=== PATIENT | male | born 1975 | race African-American/Black ===

== ENCOUNTER 2022-10-19 11:07 | Emergency (ER) | payer SELFPAY ==
[~2022-10-19] VITALS: Ht 170.2 cm; Wt 94.1 kg
[2022-10-19 11:08] VITALS: TEMP 98
[2022-10-19] MEDS ORDERED: NORV5TAB PO ×2 (11:18→14:24)
[2022-10-19] MEDS ORDERED: HYDR12.55 PO ×2 (11:18→14:24)
[2022-10-19 12:09] LABS: BASO # 0.1 10^3/uL (0.0-0.2); BASO % 1.2 % (0.0-1.0); EOS # 0.3 10^3/uL (0.0-0.5); EOS % 3.3 % (0.0-3.0); HEMATOCRIT 43.8 % (42.0-52.0); HEMOGLOBIN 15.3 g/dl (13.5-17.5); LYMPH # 1.4 10^3/uL (1.5-5.0); LYMPH % 18.3 % (24.0-44.0); MEAN CORPUSCULAR HEMOGLOBIN 31.4 pg (27.0-33.0); MEAN CORPUSCULAR HGB CONC 34.9 g/dl (32.0-36.5); MEAN CORPUSCULAR VOLUME 89.8 fl (80.0-96.0); MONO # 0.6 10^3/uL (0.0-0.8); MONO % 8.1 % (2.0-8.0); NEUTROPHILS # 5.1 10^3/uL (1.5-8.5); NEUTROPHILS % 66.9 % (36.0-66.0); PLATELET COUNT, AUTOMATED 270 10^3/uL (150-450); RED BLOOD COUNT 4.88 10^6/uL (4.30-6.10); WHITE BLOOD COUNT 7.6 10^3/uL (4.0-10.0)
[2022-10-19 12:13] LABS: ERYTHROCYTE SEDIMENTATION RATE 5 mm/hr (0-15)
[2022-10-19 12:34] LABS: C REACTIVE PROTEIN QUANTITATIV < 0.40 MG/DL (<1.0)
[2022-10-19 12:36] LABS: BLOOD UREA NITROGEN 17 MG/DL (9-23); CALCIUM LEVEL 9.4 MG/DL (8.5-10.1); CARBON DIOXIDE LEVEL 26 MMOL/L (20-31); CHLORIDE LEVEL 104 MMOL/L (98-107); CREATININE FOR GFR 1.37 MG/DL (0.70-1.30); GLUCOSE, FASTING 90 MG/DL (60-100); POTASSIUM SERUM 4.2 MMOL/L (3.5-5.1); SODIUM LEVEL 138 MMOL/L (136-145)
[2022-10-19] MEDS ORDERED: ISOVUE-370 76% 100ML VIAL As Ordered ONE (13:09)
[2022-10-19] MEDS ORDERED: BACT800T5 PO (14:24)
[2022-10-19 14:38] VITALS: BP 156/76; O2SAT 98
== END 2022-10-19 14:40 | disposition home or self-care (01) ==
LOC: M ED 11:07
DX: L03.211 Cellulitis of face (principal); I10 Essential (primary) hypertension; Z76.0 Encounter for issue of repeat prescription; Z91.013 Allergy to seafood; Z91.048 Other nonmedicinal substance allergy status; Z79.83 Long term (current) use of bisphosphonates; Z79.899 Other long term (current) drug therapy
CPT/HCPCS: 36415; 70491; 80048; 85025; 85652; 86140; 99284; Q9967